=== PATIENT | male | born 1940 | race Caucasian/White ===

== ENCOUNTER 2022-04-19 14:54 | Emergency (ER) | payer OTHER ==
[2022-04-19] MEDS ORDERED: Lidocaine 4% 1 each Patch TOP PRN (17:35)
[2022-04-19] MEDS ORDERED: Acetaminophen 325 MG Tab PO ONE (17:59)
== END 2022-04-19 18:40 | disposition home or self-care (01) ==
LOC: JD.ED 14:54
DX: S70.01XA Contusion of right hip, initial encounter (principal); Z88.2 Allergy status to sulfonamides; W01.0XXA Fall on same level from slipping, tripping and stumbling without subsequent striking against object, initial encounter; W22.8XXA Striking against or struck by other objects, initial encounter
CPT/HCPCS: 73502; 73700; 99284; A9270; 99282

== ENCOUNTER 2022-08-15 07:53 | Emergency (ER) | payer OTHER ==
[2022-08-15] MEDS ORDERED: Sodium Chloride 0.9% 10 ML Syringe FLUSH PRN (08:32)
[2022-08-15] MEDS ORDERED: Metoclopramide 10 MG/2 ML SDV IVPUSH ONE (08:34)
[2022-08-15] MEDS ORDERED: HYDROmorphone 0.5 MG/0.5 ML Syringe IVPUSH ONE (08:34)
[2022-08-15 08:57] LABS: BASOPHILS ABSOLUTE AUTO 0.02 K/mm3 (0.01-0.08); BASOPHILS PERCENT AUTO 0.4 % (0.1-1.2); EOSINOPHILS ABSOLUTE AUTO 0.07 K/mm3 (0.04-0.54); EOSINOPHILS PERCENT AUTO 1.3 (0.8-7.0); LYMPHOCYTES ABSOLUTE AUTO 0.49 K/mm3 (1.32-3.57); LYMPHOCYTES PERCENT AUTO 9.3 % (21.8-53.1); MEAN CORPUSCULAR HEMOGLOBIN 31.1 pg (25.7-32.2); MEAN CORPUSCULAR HGB CONC 32.5 g/dl (32.2-35.5); MEAN CORPUSCULAR VOLUME 95.7 fl (79.0-92.2); MEAN PLATELET VOLUME 9.5 fl (9.4-12.3); MONOCYTES ABSOLUTE AUTO 0.25 K/mm3 (0.30-0.82); MONOCYTES PERCENT AUTO 4.7 % (5.3-12.2); NEUTROPHILS ABSOLUTE AUTO 4.46 K/mm3 (1.78-5.38); NEUTROPHILS PERCENT AUTO 84.3 % (34.0-67.9); PLATELET COUNT,PLT 119 K/mm3 (163-337); RED BLOOD CELL COUNT 4.18 M/mm3 (4.63-6.08); WHITE BLOOD CELL COUNT,WBC 5.29 K/mm3 (4.23-9.07)
[2022-08-15 09:20] LABS: ALANINE AMINOTRANSFERASE,ALT 18 U/L (16-63); ALBUMIN 3.4 g/dl (3.4-5.0); ANION GAP 12.9 (5-15); ASPARTATE AMNIOTRANSFERASE,AST 18 U/L (15-37); BILIRUBIN TOTAL 0.6 mg/dL (0.2-1.0); BLOOD UREA NITROGEN,BUN 15 mg/dL (7-18); BUN/CREATININE RATIO 12.5 (14-18); CALCIUM 8.8 mg/dL (8.5-10.1); CARBON DIOXIDE,CO2 26 mEq/L (21-32); CHLORIDE,CL 104 mEq/L (98-107); CREATININE 1.2 mg/dL (0.7-1.3); EST CRCL DRUG DOSING (CG) 50.49 mL/min; ESTIMATED GFR 61 mL/min (>60); GLUCOSE RANDOM 118 mg/dL (70-99); POTASSIUM,K 3.9 mEq/L (3.5-5.1); PROTEIN TOTAL,TP 6.9 g/dl (6.4-8.2); SODIUM,NA 139 mEq/L (136-145)
[2022-08-15 09:33] LABS: ALKALINE PHOSPHATASE 89 U/L (46-116); C-REACTIVE PROTEIN <0.2 mg/dL (<1.0)
== END 2022-08-15 11:48 | disposition home or self-care (01) ==
LOC: JD.ED 07:53
DX: M46.1 Sacroiliitis, not elsewhere classified (principal); M47.896 Other spondylosis, lumbar region; E78.00 Pure hypercholesterolemia, unspecified; I10 Essential (primary) hypertension; I25.2 Old myocardial infarction; Z88.5 Allergy status to narcotic agent; Z88.1 Allergy status to other antibiotic agents; Z79.899 Other long term (current) drug therapy; Z95.1 Presence of aortocoronary bypass graft
CPT/HCPCS: 36415; 72131; 80053; 85025; 85652; 86140; 96374; 96375; 99284; G0103; J1170; J2765

== ENCOUNTER 2022-11-05 13:06 | Emergency (ER) | payer OTHER ==
[2022-11-05] MEDS ORDERED: Ketorolac 30 MG/ML SDV IM ONE (14:12)
[2022-11-05] MEDS ORDERED: Orphenadrine 100 MG Tab.ER PO STA (14:12)
== END 2022-11-05 17:15 | disposition home or self-care (01) ==
LOC: JD.ED 13:06
DX: M54.16 Radiculopathy, lumbar region (principal); I10 Essential (primary) hypertension; K21.9 Gastro-esophageal reflux disease without esophagitis; E78.00 Pure hypercholesterolemia, unspecified; I25.2 Old myocardial infarction; Z88.5 Allergy status to narcotic agent; Z88.2 Allergy status to sulfonamides
CPT/HCPCS: 73502; 96372; 99283; A9270; J1885

== ENCOUNTER 2023-01-29 15:56 | Emergency (ER) | payer OTHER ==
[2023-01-29] MEDS ORDERED: Amoxicillin/Clavulanate K 500-125 MG Tab PO ONE (17:53)
== END 2023-01-29 18:34 | disposition home or self-care (01) ==
LOC: JD.ED 15:56
DX: S06.5X0A Traumatic subdural hemorrhage without loss of consciousness, initial encounter (principal); S02.31XA Fracture of orbital floor, right side, initial encounter for closed fracture; S02.401A Maxillary fracture, unspecified side, initial encounter for closed fracture; I25.2 Old myocardial infarction; E78.00 Pure hypercholesterolemia, unspecified; I10 Essential (primary) hypertension; K21.9 Gastro-esophageal reflux disease without esophagitis; Z95.1 Presence of aortocoronary bypass graft; Z79.899 Other long term (current) drug therapy; Z88.2 Allergy status to sulfonamides; Z88.5 Allergy status to narcotic agent; W01.198A Fall on same level from slipping, tripping and stumbling with subsequent striking against other object, initial encounter; Y92.009 Unspecified place in unspecified non-institutional (private) residence as the place of occurrence of the external cause
CPT/HCPCS: 70450; 70486; 99283; A9270; 99284

== ENCOUNTER 2023-02-03 14:58 | Emergency (ER) | payer OTHER ==
[2023-02-03] MEDS ORDERED: Acetaminophen/HYDROcodone 325-5 MG Tab PO ONE (15:25)
[2023-02-03] MEDS ORDERED: traMADol 50 MG Tab PO ONE (16:13)
== END 2023-02-03 17:46 | disposition home or self-care (01) ==
LOC: JD.ED 14:58
DX: S06.5X0A Traumatic subdural hemorrhage without loss of consciousness, initial encounter (principal); S22.41XA Multiple fractures of ribs, right side, initial encounter for closed fracture; S02.401A Maxillary fracture, unspecified side, initial encounter for closed fracture; I10 Essential (primary) hypertension; E78.00 Pure hypercholesterolemia, unspecified; K21.9 Gastro-esophageal reflux disease without esophagitis; I25.2 Old myocardial infarction; Z79.899 Other long term (current) drug therapy; Z88.0 Allergy status to penicillin; Z88.5 Allergy status to narcotic agent; W18.09XA Striking against other object with subsequent fall, initial encounter
CPT/HCPCS: 70450; 71250; 99285; A9270

== ENCOUNTER 2023-02-17 12:18 | Emergency (ER) | payer OTHER | END 2023-02-17 14:33 | disposition home or self-care (01) | LOC: JD.ED 12:18 | DX: G44.309 Post-traumatic headache, unspecified, not intractable (principal); I10 Essential (primary) hypertension; E78.00 Pure hypercholesterolemia, unspecified; I25.2 Old myocardial infarction; K21.9 Gastro-esophageal reflux disease without esophagitis; Z95.1 Presence of aortocoronary bypass graft; Z79.82 Long term (current) use of aspirin; Z79.899 Other long term (current) drug therapy; Z88.2 Allergy status to sulfonamides; Z88.5 Allergy status to narcotic agent | CPT/HCPCS: 70450; 70450-26; 99283; 99284 ==

== ENCOUNTER 2023-05-23 13:23 | Inpatient (IN) | payer OTHER ==
[2023-05-23] MEDS: Sodium Chloride 0.9% 1,000 ML IV STA (14:44)
[2023-05-23] MEDS: Ondansetron 4 MG/2 ML SDV IVPUSH ONE (14:44)
[2023-05-23] MEDS: Sodium Chloride 0.9% 10 ML Syringe FLUSH PRN ×2 (14:45→15:35)
[2023-05-23 14:46] LABS: BASOPHILS PERCENT AUTO 0.2 % (0.0-1.0); EOSINOPHILS PERCENT AUTO 0.1 % (0.0-6.0); HEMATOCRIT 40.6 % (42.0-52.0); HEMOGLOBIN 13.7 gm/dl (14.0-18.0); IMMATURE GRAN ABSOLUTE AUTO 0.04 K/mm3 (0.00-0.05); IMMATURE GRAN PERCENT AUTO 0.4 % (0.0-0.4); LYMPHOCYTES ABSOLUTE AUTO 0.7 K/mm3 (1.0-4.8); LYMPHOCYTES PERCENT AUTO 6.9 % (24.0-44.0); MEAN CORPUSCULAR HEMOGLOBIN 31.2 pg (28.0-32.0); MEAN CORPUSCULAR HGB CONC 33.7 g/dl (32.0-36.0); MEAN CORPUSCULAR VOLUME 92.5 fl (83.0-99.0); MEAN PLATELET VOLUME 10.2 fl (9.4-12.4); MONOCYTES ABSOLUTE AUTO 0.6 K/mm3 (0.0-0.8); MONOCYTES PERCENT AUTO 5.6 % (0.0-8.0); NEUTROPHILS ABSOLUTE AUTO 9.4 K/mm3 (1.8-7.7); NEUTROPHILS PERCENT AUTO 86.8 % (41.0-71.0); PLATELET COUNT,PLT 88 K/mm3 (150-400); RED BLOOD CELL COUNT 4.39 M/mm3 (4.52-5.90); WHITE BLOOD CELL COUNT,WBC 10.79 K/mm3 (3.9-11.3)
[2023-05-23 15:01] LABS: ALBUMIN 3.2 g/dl (3.4-5.0); ANION GAP 9.5 (5-15); BILIRUBIN TOTAL 2.7 mg/dL (0.2-1.0); BUN/CREATININE RATIO 23.1 (14-18); C-REACTIVE PROTEIN 11.94 mg/dL (<0.30); CALCIUM 9.1 mg/dL (8.5-10.1); CREATININE 1.3 mg/dL (0.7-1.3); EST CRCL DRUG DOSING (CG) 39.74 mL/min; MAGNESIUM 1.8 mg/dL (1.8-2.4); POTASSIUM,K 3.5 mEq/L (3.5-5.1); PROTEIN TOTAL,TP 6.5 g/dl (6.4-8.2)
[2023-05-23 15:11] LABS: SLIDE REVIEW ABNORMAL SMEAR
[2023-05-23 15:13] LABS: CORONAVIRUS COVID-19 NAA NEGATIVE (NEGATIVE); INFLUENZA A NAA NEGATIVE (NEGATIVE); RESPIRATORY SYNCYTIAL VIR NAA NEGATIVE (NEGATIVE)
[2023-05-23 15:35] LABS: APPEARANCE,URINE SLT CLOUDY (Clear); BILIRUBIN,URINE 1+ (Negative); COLOR,URINE DARK YELLOW (Yellow); GLUCOSE,URINE NEGATIVE (Negative); KETONES,URINE NEGATIVE (Negative); LEUKOCYTE ESTERASE,URINE NEGATIVE (Negative); NITRITE,URINE NEGATIVE (Negative); OCCULT BLOOD,URINE NEGATIVE (Negative); PROTEIN,URINE NEGATIVE (Negative)
[2023-05-23] MEDS: Iopamidol 612 MG/ML 100 ML Bottle IVPUSH ONE (15:35)
[2023-05-23 16:02] LABS: BACTERIA,URINE FEW /hpf (FEW); MUCUS,URINE FEW /hpf (FEW); RBC,URINE 0-5 /hpf (0-5); SQUAMOUS EPITHELIAL CELLS,UR 0-5 /hpf (0-5); WBC,URINE 0-5 /hpf (0-5)
[2023-05-23] MEDS: cefTRIAXone 2 GM in Sodium Chloride 0.9% 100 ML IV ONE (17:05)
[2023-05-23] MEDS: Pantoprazole 40 MG Vial IVPUSH ONE (17:58)
[2023-05-23] MEDS: Finasteride 5 MG Tab PO ONE (19:14)
[2023-05-23] MEDS: Tamsulosin 0.4 MG Cap.ER PO ONE (19:14)
[2023-05-23] MEDS: Cholecalciferol (Vitamin D3) 25 MCG Tab PO ONE (19:14)
[2023-05-23] MEDS: traMADol 50 MG Tab PO ONE (19:14)
[2023-05-24] MEDS: Pantoprazole 40 MG Vial IVPUSH ONE (08:22)
[2023-05-24 08:42] LABS: BASOPHILS PERCENT AUTO 0.3 % (0.0-1.0); EOSINOPHILS ABSOLUTE AUTO 0.1 K/mm3 (0.0-0.4); HEMATOCRIT 38.3 % (42.0-52.0); HEMOGLOBIN 12.8 gm/dl (14.0-18.0); IMMATURE GRAN ABSOLUTE AUTO 0.03 K/mm3 (0.00-0.05); IMMATURE GRAN PERCENT AUTO 0.5 % (0.0-0.4); LYMPHOCYTES ABSOLUTE AUTO 0.6 K/mm3 (1.0-4.8); LYMPHOCYTES PERCENT AUTO 9.4 % (24.0-44.0); MEAN CORPUSCULAR HEMOGLOBIN 31.4 pg (28.0-32.0); MEAN CORPUSCULAR HGB CONC 33.4 g/dl (32.0-36.0); MEAN CORPUSCULAR VOLUME 94.1 fl (83.0-99.0); MONOCYTES ABSOLUTE AUTO 0.5 K/mm3 (0.0-0.8); NEUTROPHILS ABSOLUTE AUTO 5.2 K/mm3 (1.8-7.7); NEUTROPHILS PERCENT AUTO 79.8 % (41.0-71.0); PLATELET COUNT,PLT 64 K/mm3 (150-400); RED BLOOD CELL COUNT 4.07 M/mm3 (4.52-5.90)
[2023-05-24 09:13] LABS: A/G RATIO 0.9 (1-2); ALBUMIN 2.8 g/dl (3.4-5.0); ANION GAP 11.8 (5-15); BILIRUBIN TOTAL 1.1 mg/dL (0.2-1.0); BUN/CREATININE RATIO 23.6 (14-18); C-REACTIVE PROTEIN 10.95 mg/dL (<0.30); CALCIUM 8.8 mg/dL (8.5-10.1); CREATININE 1.1 mg/dL (0.7-1.3); EST CRCL DRUG DOSING (CG) 46.97 mL/min; POTASSIUM,K 3.8 mEq/L (3.5-5.1); PROTEIN TOTAL,TP 6.1 g/dl (6.4-8.2)
[2023-05-24] MEDS ORDERED: Docusate Sodium 100 MG Cap PO PRN (10:11)
[2023-05-24] MEDS ORDERED: Acetaminophen 325 MG Tab PO PRN (10:11)
[2023-05-24] MEDS ORDERED: Ondansetron 4 MG/2 ML SDV IV PRN (10:11)
[2023-05-24 10:40] LABS: SLIDE REVIEW ABNORMAL SMEAR
[2023-05-24] MEDS: Aspirin 81 MG Tab.EC PO SCH (11:02)
[2023-05-24] MEDS: D5 1/2 NS w/ 20 mEq/L KCl 1,000 ML IV SCH (11:02)
[2023-05-24] MEDS: 50% Dextrose in Water 50 ML Syringe IVPUSH ONE (11:35)
[2023-05-24 11:49] LABS: HEPATITIS C AB NON-REACTIVE (Non-React)
[2023-05-24] MEDS: Metoprolol Succinate 25 MG Tab.ER PO ONE (11:51)
[2023-05-24] MEDS ORDERED: Morphine 2 MG/ML SYRINGE IVPUSH PRN (11:54)
[2023-05-24 12:29] LABS: IRON,FE 25 ug/dL (65-175); PERCENT FE SATURATION 14 % (20-55); TRANSFERRIN 146 mg/dL (202-364)
[2023-05-24 12:32] LABS: TOTAL IRON BINDING CAPACITY 183 ug/dL (100-400)
[2023-05-24] MEDS: Sodium Ferric Gluconate Cmplex 125 MG in Sodium Chloride 0.9% 100 ML IV ONE (14:13)
[2023-05-24] MEDS: traMADol 50 MG Tab PO PRN (19:51)
[2023-05-24] MEDS: Finasteride 5 MG Tab PO SCH (20:01)
[2023-05-24] MEDS: Tamsulosin 0.4 MG Cap.ER PO SCH (20:01)
[2023-05-24] MEDS: Cholecalciferol (Vitamin D3) 25 MCG Tab PO SCH (20:02)
[2023-05-24] MEDS: Montelukast 10 MG Tab PO SCH (20:02)
[2023-05-25 04:54] LABS: BASOPHILS PERCENT AUTO 0.3 % (0.0-1.0); EOSINOPHILS ABSOLUTE AUTO 0.1 K/mm3 (0.0-0.4); EOSINOPHILS PERCENT AUTO 2.2 % (0.0-6.0); HEMATOCRIT 34.3 % (42.0-52.0); HEMOGLOBIN 11.7 gm/dl (14.0-18.0); IMMATURE GRAN ABSOLUTE AUTO 0.02 K/mm3 (0.00-0.05); IMMATURE GRAN PERCENT AUTO 0.6 % (0.0-0.4); LYMPHOCYTES ABSOLUTE AUTO 0.3 K/mm3 (1.0-4.8); LYMPHOCYTES PERCENT AUTO 8.6 % (24.0-44.0); MEAN CORPUSCULAR HEMOGLOBIN 31.7 pg (28.0-32.0); MEAN CORPUSCULAR HGB CONC 34.1 g/dl (32.0-36.0); MEAN PLATELET VOLUME 10.4 fl (9.4-12.4); MONOCYTES ABSOLUTE AUTO 0.2 K/mm3 (0.0-0.8); MONOCYTES PERCENT AUTO 6.1 % (0.0-8.0); NEUTROPHILS PERCENT AUTO 82.2 % (41.0-71.0); PLATELET COUNT,PLT 64 K/mm3 (150-400); RED BLOOD CELL COUNT 3.69 M/mm3 (4.52-5.90); WHITE BLOOD CELL COUNT,WBC 3.62 K/mm3 (3.9-11.3)
[2023-05-25 05:12] LABS: A/G RATIO 0.6 (1-2); ALBUMIN 2.3 g/dl (3.4-5.0); ANION GAP 10.7 (5-15); BILIRUBIN TOTAL 0.9 mg/dL (0.2-1.0); BUN/CREATININE RATIO 17.8 (14-18); C-REACTIVE PROTEIN 7.68 mg/dL (<0.30); CALCIUM 7.9 mg/dL (8.5-10.1); CREATININE 0.9 mg/dL (0.7-1.3); EST CRCL DRUG DOSING (CG) 55.09 mL/min; MAGNESIUM 1.8 mg/dL (1.8-2.4); POTASSIUM,K 3.7 mEq/L (3.5-5.1)
[2023-05-25 07:18] LABS: SLIDE REVIEW ABNORMAL SMEAR
[2023-05-25] MEDS: Cyanocobalamin (Vitamin B12) 1,000 MCG Tab PO SCH (08:53)
[2023-05-25] MEDS: Ascorbic Acid 500 MG Tab PO SCH (08:53)
[2023-05-25] MEDS: Pantoprazole 40 MG Tab.CR PO SCH (08:53)
[2023-05-25] MEDS: Metoprolol Succinate 25 MG Tab.ER PO SCH (08:54)
[2023-05-25] MEDS ORDERED: Lisinopril 10 MG Tab PO SCH (09:00)
[2023-05-26 05:33] LABS: HEPATITIS B SURFACE AG NONREACTIVE (NONREACTIVE)
[2023-05-26 05:40] LABS: BASOPHILS PERCENT AUTO 0.3 % (0.0-1.0); EOSINOPHILS ABSOLUTE AUTO 0.1 K/mm3 (0.0-0.4); EOSINOPHILS PERCENT AUTO 2.1 % (0.0-6.0); HEMATOCRIT 34.7 % (42.0-52.0); HEMOGLOBIN 11.7 gm/dl (14.0-18.0); IMMATURE GRAN ABSOLUTE AUTO 0.01 K/mm3 (0.00-0.05); IMMATURE GRAN PERCENT AUTO 0.3 % (0.0-0.4); LYMPHOCYTES ABSOLUTE AUTO 0.6 K/mm3 (1.0-4.8); LYMPHOCYTES PERCENT AUTO 14.7 % (24.0-44.0); MEAN CORPUSCULAR HEMOGLOBIN 31.4 pg (28.0-32.0); MEAN CORPUSCULAR HGB CONC 33.7 g/dl (32.0-36.0); MEAN PLATELET VOLUME 10.2 fl (9.4-12.4); MONOCYTES ABSOLUTE AUTO 0.3 K/mm3 (0.0-0.8); MONOCYTES PERCENT AUTO 8.8 % (0.0-8.0); NEUTROPHILS ABSOLUTE AUTO 2.8 K/mm3 (1.8-7.7); NEUTROPHILS PERCENT AUTO 73.8 % (41.0-71.0); PLATELET COUNT,PLT 82 K/mm3 (150-400); RED BLOOD CELL COUNT 3.73 M/mm3 (4.52-5.90); WHITE BLOOD CELL COUNT,WBC 3.73 K/mm3 (3.9-11.3)
[2023-05-26 05:55] LABS: A/G RATIO 0.8 (1-2); ALBUMIN 2.4 g/dl (3.4-5.0); ANION GAP 11.4 (5-15); BILIRUBIN TOTAL 0.9 mg/dL (0.2-1.0); BUN/CREATININE RATIO 8.9 (14-18); C-REACTIVE PROTEIN 5.82 mg/dL (<0.30); CALCIUM 8.3 mg/dL (8.5-10.1); CREATININE 0.9 mg/dL (0.7-1.3); EST CRCL DRUG DOSING (CG) 56.37 mL/min; MAGNESIUM 1.7 mg/dL (1.8-2.4); POTASSIUM,K 3.4 mEq/L (3.5-5.1); PROTEIN TOTAL,TP 5.5 g/dl (6.4-8.2)
[2023-05-26 06:24] LABS: SLIDE REVIEW ABNORMAL SMEAR
[2023-05-26] MEDS: Potassium Chloride 20 MEQ Tab.ER PO ONE (07:23)
[2023-05-26] MEDS: Magnesium Sulfate/Water 2 GM in Premix Bag 1 BAG IV ONE (07:23)
== END 2023-05-26 13:04 | disposition home or self-care (01) | DRG 440 ==
LOC: JD.ED 13:23 → JD.MS 05-24 06:41
PROVIDERS: ADMIT Internal Medicine; ATTEND Internal Medicine
DX: K85.90 Acute pancreatitis without necrosis or infection, unspecified (principal); R11.14 Bilious vomiting; E16.2 Hypoglycemia, unspecified; R74.01 Elevation of levels of liver transaminase levels; E78.00 Pure hypercholesterolemia, unspecified; I10 Essential (primary) hypertension; K21.9 Gastro-esophageal reflux disease without esophagitis; N40.0 Benign prostatic hyperplasia without lower urinary tract symptoms; H91.90 Unspecified hearing loss, unspecified ear; D69.6 Thrombocytopenia, unspecified; E88.09 Other disorders of plasma-protein metabolism, not elsewhere classified; D64.9 Anemia, unspecified; Z88.2 Allergy status to sulfonamides; Z88.5 Allergy status to narcotic agent; Z79.899 Other long term (current) drug therapy; Z79.82 Long term (current) use of aspirin; Z79.51 Long term (current) use of inhaled steroids; I25.2 Old myocardial infarction; Z87.01 Personal history of pneumonia (recurrent); Z87.81 Personal history of (healed) traumatic fracture; Z98.49 Cataract extraction status, unspecified eye; Z95.1 Presence of aortocoronary bypass graft; Z98.890 Other specified postprocedural states
CPT/HCPCS: 0241U; 36415; 74177; 74181; 76705; 80053; 81001; 82947; 83540; 83690; 83735; 84466; 84478; 85025; 86140; 86803; 87340; 97116; 97161; 97530; 99284; A9270-GY; C9113; J0696; J2405; J2916; J3475; J3480; J3490; J7030; Q9967

== ENCOUNTER 2024-02-01 11:50 | Emergency (ER) | payer OTHER ==
[2024-02-01] MEDS ORDERED: Fluorescein 1 MG Ophth Strip EYERT ONE (12:02)
[2024-02-01] MEDS ORDERED: Proparacaine 0.5% Ophth Soln 15 ML Bottle EYERT ONE (12:03)
[2024-02-01] MEDS: Ofloxacin 0.3% Ophth Soln 5 ML Bottle EYERT ONE (13:18)
== END 2024-02-01 13:22 | disposition home or self-care (01) ==
LOC: JD.ED 11:50
DX: S05.01XA Injury of conjunctiva and corneal abrasion without foreign body, right eye, initial encounter (principal); I10 Essential (primary) hypertension; I25.2 Old myocardial infarction; E78.00 Pure hypercholesterolemia, unspecified; Z95.1 Presence of aortocoronary bypass graft; Z79.899 Other long term (current) drug therapy; Z79.82 Long term (current) use of aspirin; Z88.5 Allergy status to narcotic agent; Z88.2 Allergy status to sulfonamides; W55.03XA Scratched by cat, initial encounter
CPT/HCPCS: 99283; A9270-GY; J3490

== ENCOUNTER 2024-12-26 02:21 | Emergency (ER) | payer OTHER ==
[2024-12-26] MEDS ORDERED: Nitroglycerin 0.4 MG Tab.SL SL PRN (02:54)
[2024-12-26] MEDS ORDERED: Sodium Chloride 0.9% 10 ML Syringe FLUSH PRN (02:54)
[2024-12-26] MEDS: Nitroglycerin 2% Oint 1 GM UD Packet TOP ONE (03:15)
[2024-12-26 03:18] LABS: BASOPHILS ABSOLUTE AUTO 0.0 K/mm3 (0.0-0.2); BASOPHILS PERCENT AUTO 0.3 % (0.0-1.0); EOSINOPHILS ABSOLUTE AUTO 0.1 K/mm3 (0.0-0.4); EOSINOPHILS PERCENT AUTO 1.4 % (0.0-6.0); IMMATURE GRAN ABSOLUTE AUTO 0.02 K/mm3 (0.00-0.05); IMMATURE GRAN PERCENT AUTO 0.3 % (0.0-0.4); LYMPHOCYTES ABSOLUTE AUTO 0.8 K/mm3 (1.0-4.8); LYMPHOCYTES PERCENT AUTO 14.0 % (24.0-44.0); MEAN PLATELET VOLUME 9.6 fl (9.4-12.4); MONOCYTES ABSOLUTE AUTO 0.5 K/mm3 (0.0-0.8); MONOCYTES PERCENT AUTO 8.3 % (0.0-8.0); NEUTROPHILS ABSOLUTE AUTO 4.4 K/mm3 (1.8-7.7); NEUTROPHILS PERCENT AUTO 75.7 % (41.0-71.0); NRBC ABSOLUTE 0.00 (0.00-0.02); NRBC PERCENT 0.0 % (0.0-0.2); PLATELET COUNT,PLT 101 K/mm3 (150-400); RED BLOOD CELL COUNT 3.48 M/mm3 (4.52-5.90); WHITE BLOOD CELL COUNT,WBC 5.79 K/mm3 (3.9-11.3)
[2024-12-26 05:10] LABS: BLOOD UREA NITROGEN,BUN 16 mg/dL (7-18); CHLORIDE,CL 107 mEq/L (98-107); CREATININE 1.0 mg/dL (0.7-1.3); ESTIMATED GFR 75 mL/min (>60); GLUCOSE RANDOM 108 mg/dL (70-99); POTASSIUM,K 3.3 mEq/L (3.5-5.1); SODIUM,NA 144 mEq/L (136-145); TROPONIN I HIGH SENSITIVITY 15 pg/mL (<=76)
[2024-12-26 05:17] LABS: CARBON DIOXIDE,CO2 31 mEq/L (21-32)
== END 2024-12-26 07:30 | disposition home or self-care (01) ==
LOC: JD.ED 02:21
DX: R07.9 Chest pain, unspecified (principal); E78.00 Pure hypercholesterolemia, unspecified; I10 Essential (primary) hypertension; I25.2 Old myocardial infarction; K21.9 Gastro-esophageal reflux disease without esophagitis; Z95.1 Presence of aortocoronary bypass graft; Z88.2 Allergy status to sulfonamides; Z88.5 Allergy status to narcotic agent; Z88.8 Allergy status to other drugs, medicaments and biological substances; Z79.899 Other long term (current) drug therapy; Z79.82 Long term (current) use of aspirin
CPT/HCPCS: 36415; 71045; 80048; 84484; 85025; 85379; 93005; 99285; A9270; 93010; 99284